=== PATIENT | female | born 1985 | race Hispanic/Latino ===

== ENCOUNTER 2018-09-10 18:39 | Emergency (ER) | payer OTHER ==
[2018-09-10] MEDS ORDERED: ACETAMINOPHEN EXTRA STRENGTH 500 MG TABLET ONE (19:18)
[2018-09-10] MEDS ORDERED: ONDANSETRON ODT 4 MG TAB ONE (19:26)
[2018-09-10 19:35] LABS: BILIRUBIN,URINE Small (NEGATIVE); COLOR,URINE Dark Yellow (YELLOW); GLUCOSE, URINE (UA) Negative (NEGATIVE); KETONES,URINE 40 mg/dL (NEGATIVE); LEUKOCYTE ESTERASE ,URINE Trace (NEGATIVE); NITRATE,URINE Negative (NEGATIVE); OCCULT BLOOD,URINE Negative (NEGATIVE); PROTEIN,URINE POS 1+ mg/dL (NEGATIVE); UROBILINOGEN,URINE >=8.0 mg/dL (0.2-1.0)
[2018-09-10 19:37] LABS: RAPID GROUP A STREP NEGATIVE (NEGATIVE)
[2018-09-10 19:37] LABS: APPEARANCE,URINE SLIGHTLY CLOUDY (CLEAR)
[2018-09-10 19:38] LABS: HCG,QUAL RESULT NEGATIVE (NEGATIVE)
[2018-09-10 19:41] LABS: RBC,URINE 0-1 /HPF (0-1)
[2018-09-10 19:42] LABS: BACTERIA,URINE Few /HPF (None Seen); SQUAMOUS EPITHELIAL CELL,UR Few /HPF (0-2)
== END 2018-09-10 21:32 | disposition home or self-care (01) ==
LOC: EDH 18:39
DX: J18.9 Pneumonia, unspecified organism (principal); F32.9 Major depressive disorder, single episode, unspecified; F41.9 Anxiety disorder, unspecified; Z72.0 Tobacco use
CPT/HCPCS: 71046; 81001; 81025; 87804; 87880

== ENCOUNTER 2018-09-15 17:42 | Emergency (ER) | payer OTHER | END 2018-09-15 18:20 | disposition home or self-care (01) | LOC: EDH 17:42 | DX: J20.9 Acute bronchitis, unspecified (principal); F41.9 Anxiety disorder, unspecified; F32.9 Major depressive disorder, single episode, unspecified ==

== ENCOUNTER 2019-04-13 15:24 | Emergency (ER) | payer MEDICAID ==
[2019-04-13 16:30] LABS: BASOPHILS % (AUTO) 0.5 % (0.0-5.0); HEMATOCRIT 41.4 % (36-48); LYMPHOCYTES % (AUTO) 13.8 % (21.0-51.0); MEAN CORPUSCULAR HEMOGLOBIN 27.8 pg (27.0-33.0); MEAN CORPUSCULAR HGB CONC 31.9 g/dL (32.0-36.0); MEAN CORPUSCULAR VOLUME 87.3 fL (79-99); MONOCYTES % (AUTO) 2.7 % (3.0-13.0); NEUTROPHILS % (AUTO) 81.5 % (40.0-77.0); PLATELET COUNT (AUTO) 197 K/uL (130-400); RED BLOOD CELL COUNT(AUTO) 4.74 MIL/uL (4.00-5.50); WHITE BLOOD COUNT (AUTO) 9.9 K/uL (4.8-10.8)
[2019-04-13 16:39] LABS: INR 1.01 (0.85-1.15); PARTIAL THROMBOPLASTIN TIME 25.8 SEC (26.3-35.5); PROTHROMBIN TIME 10.6 SEC (9.6-11.6)
[2019-04-13 16:40] LABS: CREATININE 0.9 mg/dL (0.5-1.5); POTASSIUM 3.6 mmol/L (3.5-5.1)
[2019-04-13 16:44] LABS: ALBUMIN 3.8 g/dL (3.5-5.0); BILIRUBIN,TOTAL 0.3 mg/dL (0.2-1.0)
[2019-04-13] MEDS ORDERED: SODIUM CHLORIDE 0.9% 1000ML 1,000 ML IV ONE (17:45)
[2019-04-13 17:55] LABS: APPEARANCE,URINE Cloudy (CLEAR); BILIRUBIN,URINE Negative (NEGATIVE); COLOR,URINE Yellow (YELLOW); GLUCOSE, URINE (UA) Negative (NEGATIVE); KETONES,URINE Negative (NEGATIVE); LEUKOCYTE ESTERASE ,URINE Moderate (NEGATIVE); NITRATE,URINE Negative (NEGATIVE); OCCULT BLOOD,URINE Negative (NEGATIVE); PH,URINE 6.5 (5.0-8.0); PROTEIN,URINE Negative (NEGATIVE)
[2019-04-13 18:04] LABS: AMPHET/METH SCREEN,URINE NEGATIVE (NEGATIVE); BARBITURATE SCREEN, URINE NEGATIVE (NEGATIVE); BENZODIAZEPINES SCREEN,URINE NEGATIVE (NEGATIVE); CANNABINOID SCREEN,URINE POSITIVE (NEGATIVE); COCAINE SCREEN,URINE NEGATIVE (NEGATIVE); OPIATE SCREEN,URINE NEGATIVE (NEGATIVE); PHENCYCLIDINE SCREEN,URINE NEGATIVE (NEGATIVE)
[2019-04-13 18:13] LABS: HCG,QUAL RESULT NEGATIVE (NEGATIVE)
[2019-04-13 19:22] LABS: BACTERIA,URINE Few /HPF (None Seen); RBC,URINE None Seen /HPF (0-1)
== END 2019-04-13 19:40 | disposition home or self-care (01) ==
LOC: EDH 15:24
DX: R55 Syncope and collapse (principal); R42 Dizziness and giddiness; F12.10 Cannabis abuse, uncomplicated; R51 Headache; F41.9 Anxiety disorder, unspecified; Z87.891 Personal history of nicotine dependence
CPT/HCPCS: 36415; 80053; 80305; 81001; 81025; 82550; 84484; 85025; 85610; 85730; 93005; 96360; 96361; 99285; J7030

== ENCOUNTER → 2021-11-13 | Outpatient (CLI) | payer MEDICAID, OTHER ==
[~2021-11-13] VITALS: Ht 5.1 cm; Wt 133.4 kg
== END | disposition home or self-care (01) ==
LOC: DTH 10:47
PROVIDERS: ATTEND Surgery
DX: Z71.3 Dietary counseling and surveillance (principal); E66.01 Morbid (severe) obesity due to excess calories; M19.91 Primary osteoarthritis, unspecified site; K21.9 Gastro-esophageal reflux disease without esophagitis; G47.33 Obstructive sleep apnea (adult) (pediatric); I10 Essential (primary) hypertension; K76.0 Fatty (change of) liver, not elsewhere classified; Z68.43 Body mass index [BMI] 50.0-59.9, adult
CPT/HCPCS: 97802

== ENCOUNTER 2022-01-04 07:23 | Day surgery (SDC) | payer OTHER ==
[2022-01-04] VITALS (7 sets, daily range): BP systolic 82–132; BP diastolic 53–75
[~2022-01-04] VITALS: Ht 157.5 cm; Wt 131.5 kg
[2022-01-04] MEDS ORDERED: PROPOFOL 10 MG/ML 20ML VIAL IV ONE (10:17)
[2022-01-04] MEDS ORDERED: TRAZ-185 PO (10:35)
[2022-01-04] MEDS ORDERED: RISP2TAB76 PO (10:35)
[2022-01-04] MEDS ORDERED: LISI20TA24 PO (10:35)
[2022-01-04] MEDS ORDERED: 0.9%NACL 1000ML 1,000 ML IV ONE (10:37)
== END 2022-01-04 11:10 | disposition home or self-care (01) ==
LOC: DAH 07:23
PROVIDERS: ATTEND Surgery
DX: K21.9 Gastro-esophageal reflux disease without esophagitis (principal); I10 Essential (primary) hypertension; G47.00 Insomnia, unspecified; J45.909 Unspecified asthma, uncomplicated; F31.9 Bipolar disorder, unspecified; Z98.890 Other specified postprocedural states; Z83.3 Family history of diabetes mellitus; Z82.49 Family history of ischemic heart disease and other diseases of the circulatory system
CPT/HCPCS: 87426; 43235; 87635; 81025; J7030; J2704; A4620; A4215 ×2; A4223; A4657; A4222; A4221; A4663; A4606